=== PATIENT | male | born 1985 | race Caucasian/White ===

== ENCOUNTER 2016-04-04 15:36 | Emergency (ER) | payer BC ==
--- NOTE | 2016-04-04 16:52 | Emergency Department Record ---
History of Present Illness - General Chief Complaint: Overdose Stated Complaint: TOOK TOO MANY PAIN PILLS Time Seen by Provider: 04/04/16 16:48 Source: Patient Mode of Arrival: Ambulatory Limitations: No limitations - History of Present Illness Initial Comments: 30 yo male presents to ED with a CC of evaluation for opiate addiction. Patient reports that he has been taking Mobridge for his back pain symptoms, and reports taking 65 7.5 mg tablets over the past 2 days. Patient denies shortness of breath or drowsiness, reports that his behavior has gotten out of hand and he knows that he needs to stop. MD Complaint: Other Onset/Timin -: Days(s) - Tee Coma Scale Eye Response: (4) Open spontaneously Motor Response: (6) Obeys commands Verbal Response: (5) Oriented [place] Total: 15 Substance Ingested: Mobridge 7.5 mg - Detail Intent: Other Context: Accidental Overdose: Other Associated Symptoms: Dizziness, Nausea/vomiting Treatments Prior to Arrival: None - Related Data Home Medications Medication Instructions Recorded Confirmed Last Taken Paroxetine HCl [Paroxetine HCl] 30 mg PO DAILY 10/30/15 04/04/16 04/03/16 Hydrocodone/Acetaminophen 1 tab PO Q6H 04/04/16 04/04/16 04/04/16 [Hydrocodon-Acetaminoph 7.5-325] Previous Rx's Medication Instructions Recorded Docusate Sodium [Colace] 100 mg PO QHS #20 cap 02/08/16 Allergies Allergy/AdvReac Type Severity Reaction Status Date / Time No Known Drug Allergies Allergy Verified 02/08/16 16:25 Travel Screening - Travel/Exposure Within Last 30 Days Have you traveled within the last 30 days?: No Review of Systems Constitutional: Denies: Chills, Fever, Malaise, Night sweats Eyes: Denies: Eye discharge, Eye pain ENT: Denies: Congestion, Ear pain, Epistaxis Respiratory: Denies: Cough, Dyspnea, Hemoptysis Cardiovascular: Denies: Chest pain, Dyspnea on exertion Endocrine: Denies: Fatigue, Heat or cold intolerance Gastrointestinal: Denies: Abdominal pain, Nausea, Vomiting Genitourinary: Denies: Hematuria, Incontinence, Retention Musculoskeletal: Denies: Arthralgia, Back pain, Gout, Joint swelling Skin: Denies: Bruising, Change in color Neurological: Denies: Abnormal gait, Confusion, Headache, Seizure Psychiatric: Denies: Anxiety Hematological/Lymphatic: Denies: Anemia, Blood Clots Past Medical History - SOCIAL HISTORY Smoking Status: Never smoker Alcohol Use: None Drug Use: None - RESPIRATORY Hx Respiratory Disorders: No - CARDIOVASCULAR Hx Cardio Disorders: No - NEURO Hx Neuro Disorders: No - GI Hx GI Disorders: Yes Hx Rectal Bleeding: Yes Hx Ulcer: Yes - Hx Genitourinary Disorders: No - ENDOCRINE Hx Endocrine Disorders: No - MUSCULOSKELETAL Hx Musculoskeletal Disorders: Yes Hx Back Injury: Yes - PSYCH Hx Psych Problems: Yes Hx Anxiety: Yes Hx Depression: Yes - HEMATOLOGY/ONCOLOGY Hx Hematology/Oncology Disorders: No Family Medical History Any Significant Family History?: No Hx HTN: Grandparents Physical Exam - General General Appearance: Alert, Oriented x3, Cooperative, No acute distress Limitations: No limitations - Head Head exam: Atraumatic, Normocephalic, Normal inspection Head exam detail: negative: Abrasion, Contusion, Chaudhary's sign, General tenderness, Hematoma, Laceration - Eye Eye exam: Normal appearance. negative: Conjunctival injection, Periorbital swelling, Periorbital tenderness, Scleral icterus - ENT Ear exam: negative: Auricular hematoma, Auricular trauma Nasal Exam: negative: Active bleeding, Discharge, Dried blood, Foreign body Mouth exam: negative: Drooling, Laceration, Muffled voice, Tongue elevation - Neck Neck exam: Normal inspection. negative: Meningismus, Tenderness - Respiratory Respiratory exam: Normal lung sounds bilaterally. negative: Respiratory distress, Rhonchi, Stridor, Wheezes - Cardiovascular Cardiovascular Exam: Regular rate, Normal rhythm, Normal heart sounds - GI/Abdominal GI/Abdominal exam: Soft. negative: Rebound, Rigid, Tenderness - Rectal Rectal exam: Deferred - exam: Deferred - Extremities Extremities exam: Normal inspection. negative: Calf tenderness, Pedal edema, Tenderness - Back Back exam: Reports: Normal inspection. Denies: CVA tenderness (R), CVA tenderness (L), Paraspinal tenderness, Rash noted - Neurological Neurological exam: Alert, Normal gait, Oriented X3 - Psychiatric Psychiatric exam: Normal affect, Normal mood - Skin Skin exam: Normal color. negative: Abrasion Type of lesion: negative: abrasion Course Vital Signs 04/04/16 04/04/16 16:07 16:29 Temperature 98.1 F Pulse Rate 71 Pulse Rate [ 64 Pulse Ox Probe] Respiratory 18 16 Rate Blood Pressure 131/81 Blood Pressure 127/80 [Left Arm] Pulse Ox 98 99 - Reevaluation(s) Reevaluation #1: 04/04/16 17:42 Labs reviewed and are grossly unremarkable for an acute process. Patient reassessed, he is alert, oriented, and well appearing. Patient was updated on all results, no evidence for hepatic inflammation or Tylenol toxicity either clinically or in reviewing the patient's laboratory studies. Patient appears stable for outpatient treatment for his opiate addiction. Patient also states that he has Clonidine at home prescribed by his PCP of withdrawal symptoms. Medical Decision Making - Lab Data Result diagrams: 04/04/16 16:15 04/04/16 16:15 Disposition Disposition: Discharge Clinical Impression: Opiate dependence Qualifiers: Substance use status: uncomplicated Qualified Code(s): F11.20 - Opioid dependence, uncomplicated Disposition: Home, Self-Care Condition: (2) Stable Instructions: Narcotic Abuse (ED) Additional Instructions: Return to ED if your symptoms worsen or if you have any concerns. [facility] as directed. Clonidine as previously prescribed for your opiate withdrawal symptoms. Forms: Patient Portal Access Time of Disposition: 17:47
[2016-04-04 16:57] LABS: BASO % 0.3 % (0-6); EOS % 1.1 % (0-6); GRAN % 52.2 % (47-80); HEMATOCRIT 41.8 % (42.0-52.0); HEMOGLOBIN 14.6 gm/dl (14.0-18.0); LYMPH % 36.4 % (16-45); MEAN CELL VOLUME 92.1 fl (81-97); MEAN CORPUSCULAR HEMOGLOBIN 32.2 pg (27-33); MEAN CORPUSCULAR HGB CONC 34.9 g/dl (32-36); MEAN PLATELET VOLUME 10.7 fl (7.4-10.4); PLATELET COUNT 250 K/uL (130-400); RED BLOOD COUNT 4.54 M/uL (4.40-5.70); RED CELL DISTRIBUTION WIDTH 13.2 % (11.5-14.5); WHITE BLOOD COUNT W/O DIFF 7.2 K/uL (4.2-12.2)
[2016-04-04 17:08] LABS: ALB/GLOB RATIO 1.8 (1.1-1.8); ALBUMIN 4.8 gm/dL (3.5-5.0); ALKALINE PHOSPHATASE 50 U/L (38-126); ALT/SGPT 56 U/L (21-72); ANION GAP 15.8 (7-16); AST/SGOT 43 U/L (17-59); BILIRUBIN,TOTAL 0.36 mg/dL (0.2-1.3); BLOOD UREA NITROGEN 12 mg/dL (9-20); CARBON DIOXIDE 24.2 mmol/L (22-30); CREATININE 0.8 mg/dL (0.66-1.25); EST GLOMERULAR FILTRATION RATE > 60 ml/min; GLUCOSE,RANDOM 78 mg/dL (70-110); TOTAL PROTEIN 7.4 gm/dL (6.3-8.2)
[2016-04-04 17:10] LABS: ACETAMINOPHEN < 10.0 ug/mL (10.0-30.0); SALICYLATE < 1.0 mg/dL (2.8-20.0)
[2016-04-04 17:27] LABS: AMPHETAMINE SCREEN URINE NOT DETECTED; BARBITURATE SCREEN URINE NOT DETECTED; BENZODIAZEPINE SCREEN URINE NOT DETECTED; COCAINE SCREEN URINE NOT DETECTED; METHADONE SCREEN URINE NOT DETECTED; METHAMPHETAMINE SCREEN NOT DETECTED; OPIATE SCREEN URINE DETECTED; OXYCODONE SCREEN URINE NOT DETECTED; PHENCYCLIDINE SCREEN URINE NOT DETECTED; PROPOXYPHENE SCREEN URINE NOT DETECTED; THC SCREEN URINE NOT DETECTED; TRICYCLIC ANTIDEPRESSANT SCRN NOT DETECTED
== END 2016-04-04 18:13 | disposition home or self-care (01) ==
LOC: ER 15:36
DX: F11.20 Opioid dependence, uncomplicated (principal); R42 Dizziness and giddiness; R11.2 Nausea with vomiting, unspecified; Z79.899 Other long term (current) drug therapy
CPT/HCPCS: 99283 ×2; 85025; 80053; G0480 ×3; G0477; 80320; 80329

== ENCOUNTER 2016-05-06 16:11 | Emergency (ER) | payer BC ==
--- NOTE | 2016-05-06 16:48 | Emergency Department Record ---
History of Present Illness - General Chief complaint: Allergic Reaction Stated complaint: REACTION TO MEDICATION Time Seen by Provider: 05/06/16 16:23 Source: Patient, Family Mode of Arrival: Ambulatory - History of Present Illness Initial Comments: 30 yo male presents with a concern about his adjustment to his methadone. He transitioned off PO narcotics 2 weeks ago. He started methadone at 30mg daily through the [facility]. He has had difficulty sleeping the last 5 days and states he has not slept at night. In response to not sleeping he states his [facility] doctor increased the does to 60mg daily. This has increased his symptoms. He feels like he is confused and having trouble concentrating. He is the primary historian and provides the history without difficulty or memory lapses. MD Complaint: Other Onset/Timin -: Days(s) Symptoms: Other Severity: Moderate Previous Allergy History: None - Related Data Home Medications Medication Instructions Recorded Confirmed Last Taken Paroxetine HCl [Paroxetine HCl] 30 mg PO DAILY 10/30/15 04/04/16 04/03/16 Hydrocodone/Acetaminophen 1 tab PO Q6H 04/04/16 04/04/16 04/04/16 [Hydrocodon-Acetaminoph 7.5-325] Previous Rx's Medication Instructions Recorded Docusate Sodium [Colace] 100 mg PO QHS #20 cap 02/08/16 Allergies Allergy/AdvReac Type Severity Reaction Status Date / Time No Known Drug Allergies Allergy Verified 02/08/16 16:25 Travel Screening - Travel/Exposure Within Last 30 Days Have you traveled within the last 30 days?: No - Travel/Exposure Within Last Year Have you traveled outside the [place] in the last year?: No - Additonal Travel Details Have you been exposed to anyone with a communicable illness?: No - Travel Symptoms Symptom Screening: None Review of Systems Constitutional: Reports: Malaise, Weakness. Denies: Chills, Fever Eyes: Denies: Eye discharge, Eye pain, Photophobia, Vision change ENT: Denies: Congestion, Throat pain Respiratory: Denies: Cough, Dyspnea, Hemoptysis, Stridor, Wheezes Cardiovascular: Denies: Chest pain, Palpitations, Syncope Endocrine: Reports: Fatigue Gastrointestinal: Reports: Diarrhea (few times daily). Denies: Abdominal pain, Nausea, Vomiting Genitourinary: Denies: Dysuria, Frequency Musculoskeletal: Reports: Back pain (chronic NO history of IVDA). Denies: Arthralgia, Joint swelling Skin: Denies: Change in color, Rash Neurological: Reports: Confusion (by history. none during the H and P) Psychiatric: Reports: Anxiety Hematological/Lymphatic: Denies: Blood Clots, Easy bleeding, Easy bruising, Swollen glands Past Medical History - SOCIAL HISTORY Smoking Status: Never smoker Alcohol Use: None Drug Use Detail:: Other - RESPIRATORY Hx Respiratory Disorders: No - CARDIOVASCULAR Hx Cardio Disorders: No - NEURO Hx Neuro Disorders: No - GI Hx GI Disorders: Yes Hx Rectal Bleeding: Yes Hx Ulcer: Yes - Hx Genitourinary Disorders: No - ENDOCRINE Hx Endocrine Disorders: No - MUSCULOSKELETAL Hx Musculoskeletal Disorders: Yes Hx Back Injury: Yes - PSYCH Hx Psych Problems: Yes Hx Anxiety: Yes Hx Depression: Yes - HEMATOLOGY/ONCOLOGY Hx Hematology/Oncology Disorders: No Family Medical History Any Significant Family History?: Yes Hx HTN: Grandparents Physical Exam - General General Appearance: Alert, Oriented x3, Cooperative, No acute distress, Other ( No distress, clear speech, no confusion of history recent or past) Limitations: No limitations - Head Head exam: Atraumatic, Normocephalic, Normal inspection - Eye Eye exam: Normal appearance, PERRL, EOMI. negative: Conjunctival injection, Nystagmus, Scleral icterus Pupils: Normal accommodation, Other (3mm). negative: Irregular, Miosis, Mydriatic, Unequal - ENT ENT exam: Normal exam, Mucous membranes moist, Normal external ear exam, Normal orophraynx Ear exam: Normal external inspection. negative: External canal tenderness Nasal Exam: Normal inspection. negative: Discharge, Sinus tenderness Mouth exam: Normal external inspection, Tongue normal Teeth exam: Normal inspection. negative: Dental caries Throat exam: Normal inspection. negative: Tonsillar erythema, Tonsillar exudate - Neck Neck exam: Normal inspection, Full ROM. negative: Tenderness - Respiratory Respiratory exam: Normal lung sounds bilaterally. negative: Respiratory distress - Cardiovascular Cardiovascular Exam: Regular rate, Normal rhythm, Normal heart sounds - GI/Abdominal GI/Abdominal exam: Soft. negative: Distended - Rectal Rectal exam: Deferred - exam: Deferred - Extremities Extremities exam: Normal inspection, Full ROM, Normal capillary refill. negative: Pedal edema, Tenderness - Back Back exam: Reports: Normal inspection - Neurological Neurological exam: Alert, Normal gait, Oriented X3 - Psychiatric Psychiatric exam: Normal affect, Normal mood - Skin Skin exam: Dry, Intact, Normal color, Warm Course Vital Signs 05/06/16 16:16 Temperature 98 F Pulse Rate 72 Respiratory 20 Rate Blood Pressure 112/63 Pulse Ox 96 - Reevaluation(s) Reevaluation #1: The labs were reviewed No acute changes with knitted cloth examiner decrease in the sodium at 131 and mild increase in AST/ALT at 83/84. TSH is in the normal range. The patient remains calm and relaxed. No confusion in the ED We discussed the labs 05/06/16 18:13 Reevaluation #2: We had a very long discussion about his labs and home care His mother will be with him tonight We encourage him to return immediately for a recheck or seek medical attention if he or his mother think he is worse The fact that he has had little to no sleep the last 5 days was emphasized as very important to him feeling normal His vitals are normal. He is alert without any signs of confusion, memory loss , or any altered mental status. I encourage him to followup with [facility], therapists, PCP, pain medication services/specialist The patient's UDS was otherwise negative. He demonstrates NO signs of altered respirations He only is granted one days dose at a time so he is not an overuse/overdose high risk I strongly encouraged him to call me and update me tomorrow with any questions or concerns if he thinks of any questions or concerns 05/06/16 18:28 05/06/16 18:32 Medical Decision Making - Lab Data Result diagrams: 05/06/16 17:04 05/06/16 17:04 Disposition Disposition: Discharge Clinical Impression: Medication reaction Disposition: Home, Self-Care Condition: (1) Good Instructions: Methadone (By mouth) Additional Instructions: Rest and try to get a night of sleep You may try Benadryl for assistance to sleep Take a half dose of Methadone tomorrow if any drowsiness persists Immediately return for a recheck if you have any concerns or questions Forms: Patient Portal Access Time of Disposition: 18:31
[2016-05-06] MEDS ORDERED: 0.9 % SODIUM CHLORIDE 1,000 ML BAG IV ONE (16:53)
[2016-05-06 17:13] LABS: HEMATOCRIT 39.1 % (42.0-52.0); HEMOGLOBIN 13.8 gm/dl (14.0-18.0); MEAN CELL VOLUME 92.2 fl (81-97); MEAN CORPUSCULAR HEMOGLOBIN 32.5 pg (27-33); MEAN CORPUSCULAR HGB CONC 35.3 g/dl (32-36); MEAN PLATELET VOLUME 11.2 fl (7.4-10.4); PLATELET COUNT 226 K/uL (130-400); RED BLOOD COUNT 4.24 M/uL (4.40-5.70); RED CELL DISTRIBUTION WIDTH 12.7 % (11.5-14.5); WHITE BLOOD COUNT W/O DIFF 8.1 K/uL (4.2-12.2)
[2016-05-06 17:22] LABS: URINE APPEARANCE CLEAR; URINE BILIRUBIN NEGATIVE (NEGATIVE); URINE BLOOD NEGATIVE (NEGATIVE); URINE COLOR YELLOW; URINE GLUCOSE (UA) NEGATIVE (NEGATIVE); URINE KETONE NEGATIVE (NEGATIVE); URINE LEUKOCYTE ESTERASE NEGATIVE (NEGATIVE); URINE NITRITE NEGATIVE (NEGATIVE); URINE PROTEIN NEGATIVE (NEGATIVE); URINE UROBILINOGEN 0.2 E.U./dL (0.20 - 1.00)
[2016-05-06 17:26] LABS: AMPHETAMINE SCREEN URINE NOT DETECTED; BARBITURATE SCREEN URINE NOT DETECTED; BENZODIAZEPINE SCREEN URINE NOT DETECTED; COCAINE SCREEN URINE NOT DETECTED; METHADONE SCREEN URINE NOT DETECTED; METHAMPHETAMINE SCREEN NOT DETECTED; OPIATE SCREEN URINE DETECTED; OXYCODONE SCREEN URINE NOT DETECTED; PHENCYCLIDINE SCREEN URINE NOT DETECTED; PROPOXYPHENE SCREEN URINE NOT DETECTED; THC SCREEN URINE NOT DETECTED; TRICYCLIC ANTIDEPRESSANT SCRN NOT DETECTED
[2016-05-06 17:27] LABS: ALB/GLOB RATIO 1.6 (1.1-1.8); ALBUMIN 4.4 gm/dL (3.5-5.0); ALKALINE PHOSPHATASE 68 U/L (38-126); ALT/SGPT 84 U/L (21-72); ANION GAP 9.1 (7-16); AST/SGOT 83 U/L (17-59); BILIRUBIN,TOTAL 0.28 mg/dL (0.2-1.3); BLOOD UREA NITROGEN 15 mg/dL (9-20); CARBON DIOXIDE 30.9 mmol/L (22-30); CREATININE 0.9 mg/dL (0.66-1.25); EST GLOMERULAR FILTRATION RATE > 60 ml/min; GLUCOSE,RANDOM 88 mg/dL (70-110); TOTAL PROTEIN 7.2 gm/dL (6.3-8.2)
[2016-05-06 17:41] LABS: ACETAMINOPHEN < 10.0 ug/mL (10.0-30.0); SALICYLATE < 1.0 mg/dL (2.8-20.0)
[2016-05-06 17:57] LABS: THYROID STIMULATING HORMONE 0.52 uIU/ml (0.465-4.68)
== END 2016-05-06 18:52 | disposition home or self-care (01) ==
LOC: ER 16:11
DX: R41.0 Disorientation, unspecified (principal); G47.00 Insomnia, unspecified; T40.3X5A Adverse effect of methadone, initial encounter; Z79.899 Other long term (current) drug therapy
CPT/HCPCS: 99284 ×2; 96360; 96361; 80053; 81003; 84443; 80305; 85027; G0480 ×3; 80320; 80329; J7030

== ENCOUNTER 2016-11-15 00:56 | Emergency (ER) | payer BC ==
--- NOTE | 2016-11-15 01:16 | Emergency Department Record ---
History of Present Illness - General Chief complaint: Allergic Reaction Stated complaint: SOB Time Seen by Provider: 11/15/16 01:09 Source: Patient Mode of Arrival: Ambulatory Limitations: No limitations - History of Present Illness Initial Comments: The patient is here due to feeling mildly anxious for about 3 hours. He feels like he is having mild trouble breathing. The patient states he was having a flare up of his chronic back pain yesterday and took his normal dose of Methadone but since it was not working he took 15 [place] throughout the day over about 12 hours. Now the pain is gone but he is now worried the two medicines may be interacting and he now is anxious about it. The patient believes his mild SOB is due to the anxiety. He denies any CP, cough, sputum production, fever, nausea, vomiting, AP, or diarrhea. He also denies any suicidal or homicidal ideation. MD Complaint: Other Onset/Timin -: Hour(s) Exposure: Medication Symptoms: Other Severity: Mild Treatment Prior to Arrival: None Previous Allergy History: None - Related Data Allergies Allergy/AdvReac Type Severity Reaction Status Date / Time No Known Drug Allergies Allergy Verified 11/15/16 01:07 Travel Screening - Travel/Exposure Within Last 30 Days Have you traveled within the last 30 days?: No - Travel/Exposure Within Last Year Have you traveled outside the [place] in the last year?: No - Additonal Travel Details Have you been exposed to anyone with a communicable illness?: No - Travel Symptoms Symptom Screening: None Review of Systems Constitutional: Denies: Chills, Fever Eyes: Denies: Eye discharge ENT: Denies: Congestion Respiratory: Reports: Dyspnea. Denies: Cough Past Medical History - SOCIAL HISTORY Smoking Status: Never smoker Alcohol Use: None Drug Use: None - RESPIRATORY Hx Respiratory Disorders: No - CARDIOVASCULAR Hx Cardio Disorders: No - NEURO Hx Neuro Disorders: No - GI Hx GI Disorders: Yes Hx Rectal Bleeding: Yes Hx Ulcer: Yes - Hx Genitourinary Disorders: No - ENDOCRINE Hx Endocrine Disorders: No - MUSCULOSKELETAL Hx Musculoskeletal Disorders: Yes Hx Back Injury: Yes - PSYCH Hx Psych Problems: Yes Hx Anxiety: Yes Hx Depression: Yes - HEMATOLOGY/ONCOLOGY Hx Hematology/Oncology Disorders: No Family Medical History Any Significant Family History?: No Hx HTN: Grandparents Physical Exam - General General Appearance: Alert, Oriented x3, Cooperative, No acute distress - Head Head exam: Atraumatic, Normocephalic, Normal inspection - Eye Eye exam: Normal appearance, PERRL - ENT Throat exam: Normal inspection. negative: Tonsillar erythema, Tonsillomegaly, Tonsillar exudate - Neck Neck exam: Normal inspection, Full ROM. negative: Lymphadenopathy, Meningismus , Tenderness - Respiratory Respiratory exam: Normal lung sounds bilaterally. negative: Accessory muscle use, Decreased breath sounds, Prolonged expiratory, Respiratory distress, Rhonchi, Stridor, Wheezes - Cardiovascular Cardiovascular Exam: Regular rate, Normal rhythm, Normal heart sounds - GI/Abdominal GI/Abdominal exam: Soft, Normal bowel sounds. negative: Tenderness - Extremities Extremities exam: Normal inspection, Full ROM, Normal capillary refill. negative: Tenderness - Neurological Neurological exam: Alert, Normal gait. negative: Abnormal gait, Motor sensory deficit Course Vital Signs 11/15/16 11/15/16 01:02 01:03 Temperature 98.3 F 98.3 F Pulse Rate [ 61 Pulse Ox Probe] Respiratory 20 20 Rate Blood Pressure 124/80 [Left Arm] Pulse Ox 97 97 - Reevaluation(s) Reevaluation #1: after being in the ED for a short time the patient felt much better and his SOB did resolve but he continued to feel mildly anxious. I explained to him that due to his need to drive home I could not give him any medicine here. He also states he has Vistaril at home that helps his anxiety and would like to go home to take it. The patient was very calm and cooperative and was exhibiting normal decision making capacity so he decided to leave [place]. I explained to him that we are checking his liver and kidneys for any acetaminophen toxicity and need for acute treatment and by not staying he could have liver damage, go home and have liver failure, a stroke, be disabled and even . The patient understood the risks and accepted the risks. He was told to return to the ER at any time for recheck if needed. 11/15/16 01:48 Medical Decision Making - Lab Data Result diagrams: 11/15/16 01:35 11/15/16 01:35 Disposition Disposition: Discharge Clinical Impression: Anxiety Disposition: Against Medical Advice Condition: (2) Stable Instructions: Generalized Anxiety Disorder (ED) Additional Instructions: Please take your Vistaril for your anxiety when you get home. Please see your PCP for recheck in 1-2 days. Return to the ER for any pain, nausea, vomiting, or diarrhea. Forms: Patient Portal Access Time of Disposition: 01:43 Quality - Quality Measures Quality Measures: N/A - Blood Pressure Screening View Details: Yes Does Patient Have Any of the Following: No Blood Pressure Classification: Pre-Hypertensive BP Reading Systolic Measurement: 124 Diastolic Measurement: 80 Screening for High Blood Pressure: < Pre-Hypertensive BP, F/U Documented > [ [id number]] Pre-Hypertensive Follow-up Interventions: Referral to alternative/primary care provider.
[2016-11-15 01:33] LABS: HEMATOCRIT 42.6 % (42.0-52.0); HEMOGLOBIN 15.3 gm/dl (14.0-18.0); MEAN CORPUSCULAR HEMOGLOBIN 30.5 pg (27-33); MEAN CORPUSCULAR HGB CONC 35.9 g/dl (32-36); MEAN PLATELET VOLUME 10.8 fl (7.4-10.4); PLATELET COUNT 246 K/uL (130-400); RED BLOOD COUNT 5.01 M/uL (4.40-5.70); RED CELL DISTRIBUTION WIDTH 13.7 % (11.5-14.5); WHITE BLOOD COUNT W/O DIFF 7.2 K/uL (4.2-12.2)
[2016-11-15 01:54] LABS: ACETAMINOPHEN 14.8 ug/mL (10.0-30.0); ALB/GLOB RATIO 1.7 (1.1-1.8); ALBUMIN 4.6 g/dL (4.0-5.0); ALKALINE PHOSPHATASE 69 U/L (40-129); ALT/SGPT 30 U/L (<41); AST/SGOT 47 U/L (10.0-50.0); BLOOD UREA NITROGEN 48.8 mg/dL (12.6-42.6); CREATININE 0.8 mg/dL (0.7-1.2); EST GLOMERULAR FILTRATION RATE > 60 mL/min; GLUCOSE,RANDOM 90 mg/dL (74-109); TOTAL PROTEIN 7.3 g/dL (6.6-8.7)
== END 2016-11-15 01:45 | disposition left against medical advice (07) ==
LOC: ER 00:56
DX: R41.9 Unspecified symptoms and signs involving cognitive functions and awareness (principal); R06.02 Shortness of breath; M54.5 Low back pain; G89.29 Other chronic pain
CPT/HCPCS: 99283 ×2; 80053; 85027; G0480; 80329

== ENCOUNTER 2018-03-06 06:31 | Emergency (ER) | payer SELFPAY ==
--- NOTE | 2018-03-06 07:06 | Emergency Department Record ---
History of Present Illness - General Chief Complaint: Back Pain/Injury Stated Complaint: BACK INJURY Time Seen by Provider: 03/06/18 06:58 Source: Patient - History of Present Illness Initial Comments: patient states he was lifting a laundry basket yesterday and twisting and developed pain in the right SI joint aea and he has had previous back pain about 1-2 years ago and he has had a problem with dependence on narcotics for back pain and he is now on methadone and weaning off and that was reduced to 15 mg about 3 weeks ago. MD Complaint: Back pain Onset/Timin -: Hour(s) Place: Home Severity scale (1-10): 7 Quality: Sharp Consistency: Constant Improves With: Other Worsens With: Movement Context: Bending Associated Symptoms: Denies other symptoms - Related Data Previous Rx's Medication Instructions Recorded Cyclobenzaprine HCl [Flexeril] 10 mg PO TID #30 tablet 03/06/18 Naproxen [Naprosyn] 500 mg PO BID #30 tablet 03/06/18 Allergies Allergy/AdvReac Type Severity Reaction Status Date / Time No Known Drug Allergies Allergy Verified 03/06/18 06:39 Travel Screening - Travel/Exposure Within Last 30 Days Have you traveled within the last 30 days?: No - Travel Symptoms Symptom Screening: None Review of Systems Reviewed: No additional complaints except as noted below Constitutional: Reports: As per HPI. Denies: Chills, Fever, Malaise, Night sweats, Weakness, Weight change Eyes: Reports: As per HPI. Denies: Eye discharge, Eye pain, Photophobia, Vision change ENT: Reports: As per HPI. Denies: Congestion, Dental pain, Ear pain, Epistaxis , Hearing loss, Throat pain Respiratory: Reports: As per HPI. Denies: Cough, Dyspnea, Hemoptysis, Stridor, Wheezes Cardiovascular: Reports: As per HPI. Denies: Arrhythmia, Chest pain, Dyspnea on exertion, Edema, Murmurs, Orthopnea, Palpitations, Paroxysmal nocturnal dyspnea, Rheumatic Fever, Syncope Endocrine: Reports: As per HPI. Denies: Fatigue, Heat or cold intolerance, Polydipsia, Polyuria Gastrointestinal: Reports: As per HPI. Denies: Abdominal pain, Constipation, Diarrhea, Hematemesis, Hematochezia, Melena, Nausea, Vomiting Genitourinary: Reports: As per HPI. Denies: Dysuria, Frequency, Hematuria, Incontinence, Retention, Testicular pain, Testicular mass, Urgency Musculoskeletal: Reports: As per HPI, Back pain. Denies: Arthralgia, Gout, Joint swelling, Myalgia, Neck pain Skin: Reports: As per HPI. Denies: Bruising, Change in color, Change in hair/ nails, Lesions, Pruritus, Rash Neurological: Reports: As per HPI. Denies: Abnormal gait, Confusion, Headache, Numbness, Paresthesias, Seizure, Tingling, Tremors, Vertigo, Weakness Psychiatric: Reports: As per HPI. Denies: Anxiety, Auditory hallucinations, Depression, Homicidal thoughts, Suicidal thoughts, Visual hallucinations Hematological/Lymphatic: Reports: As per HPI. Denies: Anemia, Blood Clots, Easy bleeding, Easy bruising, Swollen glands Past Medical History - SOCIAL HISTORY Smoking Status: Never smoker Alcohol Use: None Drug Use Detail:: Opiates, Prescription drug abuse - RESPIRATORY Hx Respiratory Disorders: No - CARDIOVASCULAR Hx Cardio Disorders: No - NEURO Hx Neuro Disorders: No - GI Hx GI Disorders: Yes Hx Rectal Bleeding: Yes Hx Ulcer: Yes - Hx Genitourinary Disorders: No - ENDOCRINE Hx Endocrine Disorders: No - MUSCULOSKELETAL Hx Musculoskeletal Disorders: Yes Hx Back Injury: Yes - PSYCH Hx Psych Problems: Yes Hx Anxiety: Yes Hx Depression: Yes - HEMATOLOGY/ONCOLOGY Hx Hematology/Oncology Disorders: No Family Medical History Any Significant Family History?: Yes Hx HTN: Grandparents Physical Exam - General General Appearance: Alert, Oriented x3, Cooperative, Moderate distress - Head Head exam: Normal inspection - Eye Eye exam: Normal appearance, PERRL Pupils: Normal accommodation - ENT ENT exam: Normal exam, Mucous membranes moist, Normal external ear exam, Normal orophraynx, TM's normal bilaterally Ear exam: Normal external inspection. negative: External canal tenderness Nasal Exam: Normal inspection. negative: Discharge, Sinus tenderness Mouth exam: Normal external inspection, Tongue normal Teeth exam: Normal inspection. negative: Dental caries Throat exam: Normal inspection. negative: Tonsillar erythema, Tonsillar exudate - Neck Neck exam: Normal inspection, Full ROM. negative: Tenderness - Respiratory Respiratory exam: Normal lung sounds bilaterally. negative: Respiratory distress - Cardiovascular Cardiovascular Exam: Regular rate, Normal rhythm, Normal heart sounds - GI/Abdominal GI/Abdominal exam: Soft, Normal bowel sounds. negative: Tenderness - Rectal Rectal exam: Deferred - exam: Deferred - Extremities Extremities exam: Normal inspection, Full ROM, Normal capillary refill. negative: Tenderness - Back Back exam: Reports: Muscle spasm, Tenderness, Other (standing on toes equal bilateral and standing flexion to 80 degrees). Denies: Rash noted - Neurological Neurological exam: Alert, Normal gait, Oriented X3, Reflexes normal - Psychiatric Psychiatric exam: Normal affect, Normal mood - Skin Skin exam: Dry, Intact, Normal color, Warm Course Vital Signs 03/06/18 06:37 Temperature 97.7 F Pulse Rate [ 82 Pulse Ox Probe] Respiratory 20 Rate Blood Pressure 124/88 [Left Arm] Pulse Ox 98 Disposition Clinical Impression: Lumbar strain Qualifiers: Encounter type: initial encounter Qualified Code(s): S39.012A - Strain of muscle, fascia and tendon of lower back, initial encounter Disposition: Home, Self-Care Condition: (2) Stable Instructions: Low Back Strain (ED) Additional Instructions: ice to back for 48 hours than switch to heat four times a day off work today and follow up with family Dr in 2-7 days Prescriptions: Cyclobenzaprine HCl [Flexeril] 10 mg PO TID #30 tablet Naproxen [Naprosyn] 500 mg PO BID #30 tablet Forms: Patient Portal Access Time of Disposition: 07:43 Quality - Quality Measures Quality Measures: N/A - Blood Pressure Screening Does Patient Have Any of the Following: No Blood Pressure Classification: Pre-Hypertensive BP Reading Systolic Measurement: 124 Diastolic Measurement: 88 Screening for High Blood Pressure: < Pre-Hypertensive BP, F/U Documented > [ [id number]] Pre-Hypertensive Follow-up Interventions: Referral to alternative/primary care provider.
[2018-03-06] MEDS ORDERED: ORPHENADRINE CITRATE 60MG/2ML VIAL IM ONE (07:07)
[2018-03-06] MEDS ORDERED: KETOROLAC 60 MG/2 ML VIAL IM STA (07:07)
== END 2018-03-06 07:55 | disposition home or self-care (01) ==
LOC: ER 06:31
DX: S39.012A Strain of muscle, fascia and tendon of lower back, initial encounter (principal); X50.0XXA Overexertion from strenuous movement or load, initial encounter; Y93.E2 Activity, laundry; Y92.009 Unspecified place in unspecified non-institutional (private) residence as the place of occurrence of the external cause
CPT/HCPCS: 96372; 99283; J1885; J2360